=== PATIENT | female | born 1930 | race Caucasian/White ===

== ENCOUNTER 2016-11-10 22:03 | Inpatient (IN) ==
--- NOTE | 2016-11-10 22:37 | Emergency Department Note ---
Arrival - Arrival Chief Complaint: Fall Stated Complaint: cut on head ED Nursing Triage Note: Patient states that she began feeling weak and fell while walking at home and hit her forehead. Laceration noted to forehead upon triage with no active bleeding. Patient awake and alert and able to answer questions. Mode of Arrival: Wheelchair Limitations: Altered Mental Status Source: Family Time Seen by Provider: 11/10/16 22:32 - History of Present Illness HPI Narrative: This 86-year-old white female presents after falling while walking at home and injuring her forehead without loss of conscious. This follows a CT of the abdomen earlier today to evaluate her progressive weakness, memory change, and 30 pound weight loss since the first year. The patient currently is alert and oriented 3 but per the family she has had increasing problems with short-term memory loss. She has never been diagnosed with dementia or Alzheimer's in the past. As concerns her fall, the patient denies any other complaints of injury and has had no nausea, vomiting, slurring of speech, or focal deficit. She is stable medically at this time. Onset (ago): hour(s) (Patient presents 2 hours post incident) Date of Last Menstrual Period: menopause Allergies/Adverse Reactions: Allergies Allergy/AdvReac Type Severity Reaction Status Date / Time codeine Allergy ITCHING Verified 11/10/16 22:20 Home Medications: Home Medications Medication Instructions Recorded Confirmed Type Unable To Obtain [Unable to Obtain] 11/10/16 11/10/16 History Review of System - Review of System 12 point system: reviewed and no additional remarkable complaints except as stated - Review of System Constitutional: Present: as per HPI Gastrointestinal: Present: as per HPI Neurological: Present: as per HPI Medical,Surgical,& Family Hx - Medical History Cardio: History of: Hypertension Endocrine: History of: Dyslipidemia - Social History Smoking Status: Never smoker Frequency of Alcohol Use: None Type of Drug Use: None Exam Physical Examination: GENERAL: Well developed, well nourished elderly white female in no acute distress. HEENT: Normocephalic. When it is laceration left forehead. Moist mucous membranes. EOMI. PERRLA. ENT NML NECK: Supple. No adenopathy. CARDIAC: Regular. No murmurs. Heart rate 86 CHEST: Clear to auscultation. No respiratory distress. ABDOMEN: Soft. Nontender. Active bowel sounds. EXTREMITIES: No trauma. Normal ROM. No pedal edema. SKIN: No diaphoresis. No rash. Small forehead laceration as above. NEURO: Alert. Oriented 3. Motor, sensory, vibratory intact. No focal deficits. Vital Signs: Vital Signs Temperature 99.2 F 11/11/16 00:10 Pulse Rate 86 11/11/16 00:10 Respiratory Rate 19 11/11/16 00:10 Blood Pressure 144/80 11/11/16 00:10 O2 Sat by Pulse Oximetry 92 L 11/11/16 00:10 Course - Reevaluation(s) Reevaluation #1: Discussed with caregiver the fact that her pulmonary status requires hospitalization. - Consultations Consultation #1: Discussed with hospitalist service will admit for further evaluation treatment. Procedures - Laceration Laceration 1 Site: face Size (cm): 2 Description: linear Depth: simple, single layer Local Anesthetic: lidocaine 1%, with epi Amount of Anesthesia Used (mL): 10 Pre-repair: wound explored Skin layer closed with: nylon Size: 4-0 Number of sutures: 8 Technique: simple, interrupted Results - Labs CBC & BMP: 11/10/16 23:36 11/10/16 23:36 Labs: I reviewed the lab and noted the bump in white blood cell count as well as bump in troponin peer - Impressions EKG: Sinus rhythm at 91 with prolonged OR interval normal QRS duration. 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 Nonspecific ST changes. No acute injury pattern noted. - Diagnostic Findings Procedure: Chest x-ray: image reviewed by me, report reviewed by me (Loss of volume on the right with probable perihilar mass versus pneumonia as well as possible right upper lobe peripheral lesion as compared to previous x-rays), CT Abdomen and Pelvis: image reviewed by me, report reviewed by me (From earlier today revealed wall thickening across esophageal gastric junction, cholelithiasis, peripheral atherosclerosis, and cardiomegaly), CT: image reviewed by me, report reviewed by me (Head: No acute injury with microvascular ischemia and cerebral atrophy noted.) Disposition Clinical Impression: Abnormal chest x-ray, Weight loss, Abnormal cardiac enzyme, Intermittent AMS Case discussed with: other (Patient's friend) Disposition: Still a Patient Condition: Guarded Time of Disposition: 00:29
[2016-11-10] MEDS ORDERED: cefTRIAXone 1,000 MG in SODIUM CHLORIDE 0.9% 100 ML IV STA (23:10)
[2016-11-11 00:02] LABS: Basophils % 0.2 % (0.0-0.8); Eosinophils # 0.1 10*3/uL (0.0-0.87); Eosinophils % 0.9 % (0.00-10.9); Hematocrit 45.9 VOL% (35.7-47.0); Hemoglobin 15.6 GM/DL (12.0-16.0); Immature Granulocytes % 0.4 %; Immature Granulocytes Absolute 0.05 #; Lymphocytes # 0.4 10*3/uL (1.4-4.0); Lymphocytes % 2.9 % (21.3-54.2); Mean Corpuscular Hemoglobin 30 PG (27-34); Mean Corpuscular Volume 88.3 FL (87-102); Mean Platelet Volume 11.5 FL (9.6-12.0); Monocytes # 0.5 10*3/uL (0.11-0.8); Monocytes % 3.5 % (1.7-12.7); Neutrophils # 11.7 10*3/uL (1.4-7.4); Neutrophils % 92.1 % (38.7-73.9); Platelet Count 248 T/CUMM (130-400); Red Cell Distribution Width 14.9 % (9.3-17.3); White Blood Count 12.7 T/CUMM (4-12)
[2016-11-11 00:06] LABS: Alanine Aminotransferase 10 U/L (13-56); Albumin 3.2 G/DL (3.4-5.0); Alkaline Phosphatase 87 U/L (45-117); Aspartate Amino Transferase 14 U/L (0-37); Blood Urea Nitrogen 16 MG/DL (7-18); Calcium 9.1 MG/DL (8.5-10.1); Glucose 121 MG/DL (74-106); Osmolality,Calculated 276.7 MOS/KG (273-304); Potassium 3.6 MMOL/L (3.5-5.1); Sodium 138 MMOL/L (136-145); Total Protein 7.7 G/DL (6.4-8.3)
[2016-11-11 00:14] LABS: PT Patient Result 10.5 SECS; Partial Thromboplastin Time 28.1 SECS (0-40)
[2016-11-11 00:17] LABS: Apearance,Urine Slightly Hazy (Clear); Bacteria,Urine Occasional /HPF (Few); Bilirubin,Urine Negative (Negative); Blood, Urine Negative (Negative); Glucose,Urine (UA) Negative (Negative); Ketones,Urine Negative (Negative); Nitrite,Urine Negative (Negative); Protein,Urine Negative; RBC,Urine 4 /HPF (0-4); Squamous Epithelial Cell,Urine Occasional /HPF (0-10); Urine Color Yellow (Yellow); Urine Specific Gravity 1.016 (1.001-1.035); Urine Urobilinogen < 2.0 EU/DL (0.2-1.0); WBC,Urine 2 /HPF (0-6)
--- NOTE | 2016-11-11 00:27 | Order Completion Report ---
See report scanned to EMR
[2016-11-11 00:31] LABS: Barbiturates Screen,Urine Negative (Negative); Benzodiazepines Screen,Urine Negative (Negative); Cannabinoid Screen,Urine Negative (Negative); Opiate Screen,Urine Negative (Negative); Phencyclidine Screen,Urine Negative (Negative)
[2016-11-11] MEDS ORDERED: SODIUM CHLORIDE 0.9% 100 ML IV ONE (02:07)
[2016-11-11] MEDS ORDERED: ALBUTEROL/IPRATROPIUM 3 ML NEB RESP TX PRN (02:13)
[2016-11-11] MEDS ORDERED: ACETAMINOPHEN 325 MG TABLET PO PRN (02:13)
[2016-11-11] MEDS ORDERED: cefTRIAXone 1,000 MG VIAL ONE (02:13)
[2016-11-11] MEDS ORDERED: ONDANSETRON 4 MG/2 ML VIAL IV PRN (02:13)
--- NOTE | 2016-11-11 02:28 | Hospitalist History & Physical ---
Assessment and Plan (1) Pneumonia Status: Acute Current Visit: Yes (2) Gastroesophageal wall thickening Status: Acute Current Visit: Yes (3) Weight loss Status: Acute Current Visit: Yes (4) History of abdominal pain Status: Acute Current Visit: Yes (5) Status post fall Status: Acute Current Visit: Yes (6) Laceration of head Status: Acute Current Visit: Yes (7) Mild bump in troponins Status: Acute Assessment and plan: Our plan for this patient will be admitting her to a monitored bed on her service. I am going to consult Dr. Yun. I am concerned about this changes on her chest x-ray that could be a mass in her hilar area or it could just be pneumonia. I would appreciate his input on this area. For the findings found on CT scan with thickening across the esophageal gastric junction I am going to consult GI for possible endoscopy. When asked that her home meds be confirmed and would continue those once confirmed. DVT and GI prophylaxis will be started while in the hospital Current Visit: Yes History of Present Illness Chief complaint: Status post fall History of present illness: Ms. Ricks is a 86 year old female with past medical history of hypertension and dyslipidemia who was in her normal state of health until today. Patient is a patient of Dr. Yun's. Apparently the nurse practitioner ordered a CT scan of the patient. This was for abdominal pain and weight loss. On the CT scan that showed a questionable wall thickening across the esophageal gastric junction correlate with endoscopy. A neighbor had taken her to the hospital to get the CT scan. He took her back home. Patient lives by herself but patient seems to have dementia to me. And the neighbor confirms this. She has never been diagnosed with dementia. But it has been noted that she has had more increased problems with her short-term memory. Her son called a neighbor and said would you please check on his mother she had following she was bleeding. He brought the patient up to the hospital for further evaluation. Patient had a CT scan of her head that showed no acute intracranial abnormality. But in the workup performed by the ER physician it was noted that she did have some changes on a chest x-ray. I was consulted for admission and evaluation. Home Medications Medication Instructions Recorded Confirmed Type Unable To Obtain [Unable to Obtain] 11/10/16 11/10/16 History Allergies Allergy/AdvReac Type Severity Reaction Status Date / Time codeine Allergy ITCHING Verified 11/10/16 22:20 Medical,Surgical,& Family Hx - Medical History Cardio: History of: Hypertension Endocrine: History of: Dyslipidemia - Surgical History Abdominal Surgeries: Surgical HX of: Appendectomy - Family History Family History: noncontributory (Patient cannot tell me) - Social History Smoking Status: Never smoker Frequency of Alcohol Use: None Type of Drug Use: None ROS unobtainable: due to mental status Exam - Constitutional Vitals: Period Temp Pulse Resp BP Sys/[place] Pulse Ox Last 24 Hr 99.2 F-99.2 F 86-86 19-19 144-144/80-80 87-92 General appearance: normal weight - Head Head exam: Present: normal inspection, laceration - Eye Eye exam: Present: EOMI Pupils: Present: N[place] - Neck Neck exam: Present: normal inspection - Respiratory Respiratory exam: Present: clear to auscultation bilaterally - Cardiovascular Cardiovascular exam: Present: regular rate and rhythm - GI/Abdominal GI/Abdominal exam: Present: normal bowel sounds - Extremities Exam Extremities exam: Present: normal inspection - Back Exam Back exam: Present: normal inspection - Neurological Exam Neurological exam: Present: alert - Psychiatric Psychiatric exam: Present: flat affect - Skin Skin exam: Present: normal color Results - Labs CBC & BMP: 11/10/16 23:36 11/10/16 23:36
[2016-11-11 03:31] LABS: Band Neutrophils 3 % (0-10); Lymphocytes 3 % (20-55); Platelet Estimate Normal; Segmented Neutrophils 90 % (50-85); Total Cells Counted 100
[2016-11-11] MEDS: AZITHROMYCIN INJ 500 MG in SODIUM CHLORIDE 0.9% 250 ML IV SCH (03:55)
--- NOTE | 2016-11-11 06:42 | CT Report ---
History: Mental status changes. Altered mental status. Confusion or disorientation Date: 11/10/2016 Study: CT head without contrast Comparison exam: No previous head CT The study was also reviewed by [facility]. Transaxial CT sections were obtained through the brain without contrast. The ventricles are midline in position without evidence of hydrocephalus. There is no mass or area of parenchymal hemorrhage. There is no gross CT evidence of acute cortical stroke. There is mild diffuse cerebral atrophy. There is some ill-defined low density in the periventricular white matter without mass effect compatible with changes of small vessel disease. 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 There is asymmetric relative atrophy of the right temporal and occipital lobes as compared to the left. There is no extra-axial hematoma. The sinuses are generally clear. There is no obvious skull fracture. There is some mild soft tissue swelling and localized soft tissue emphysema of the left frontal scalp compatible with scalp laceration Impression: No acute intracranial process. Chronic ischemic changes Left frontal scalp laceration This CT exam was performed using one or more the following dose reduction techniques: Automated exposure control, adjustment of the MA and/or KV according to patient size, or use of iterative reconstruction technique. PROCEDURE INTERPRETED AT [facility] DEPARTMENT OF RADIOLOGY Final Report Signed by: Dr. Sonja Feliciano
[2016-11-11 07:41] LABS: Basophils % 0.2 % (0.0-0.8); Eosinophils # 0.4 10*3/uL (0.0-0.87); Eosinophils % 2.3 % (0.00-10.9); Hematocrit 40.1 VOL% (35.7-47.0); Immature Granulocytes % 0.4 %; Immature Granulocytes Absolute 0.07 #; Lymphocytes # 0.4 10*3/uL (1.4-4.0); Lymphocytes % 2.7 % (21.3-54.2); Mean Corpuscular HGB Conc 33.7 GM/DL (32-36); Mean Corpuscular Hemoglobin 30 PG (27-34); Mean Corpuscular Volume 88.1 FL (87-102); Mean Platelet Volume 11.6 FL (9.6-12.0); Monocytes # 0.7 10*3/uL (0.11-0.8); Monocytes % 4.1 % (1.7-12.7); Neutrophils # 14.8 10*3/uL (1.4-7.4); Neutrophils % 90.3 % (38.7-73.9); Platelet Count 218 T/CUMM (130-400); Red Blood Count 4.55 MC/CUMM (3.8-5.5); Red Cell Distribution Width 15.3 % (9.3-17.3); White Blood Count 16.4 T/CUMM (4-12)
--- NOTE | 2016-11-11 07:53 | XRay Report ---
History: Shortness of breath Date: 11/10/2016 Study: Chest x-ray AP portable Comparison exam: January 24, 2009 There is borderline cardiomegaly. There is some asymmetric soft tissue fullness in the right infrahilar region. Underlying lymphadenopathy or superimposed pulmonary mass cannot be excluded. Recommend obtaining CT chest for further evaluation. There is moderate aortic arch calcification. The pulmonary vasculature is not engorged. There is no gross pleural effusion. There are some probable scattered emphysematous changes. There is mild thoracolumbar scoliosis, osteopenia, and spondylosis. Impression: Area of asymmetric increased density right infrahilar region. Recommend obtaining CT chest to help exclude malignancy. Focal pneumonia would also be a diagnostic consideration. PROCEDURE INTERPRETED AT [facility] DEPARTMENT OF RADIOLOGY Final Report Signed by: Dr. Sonja Feliciano
[2016-11-11 07:58] LABS: Hemoglobin 13.5 GM/DL (12.0-16.0)
[2016-11-11 08:06] LABS: Band Neutrophils 4 % (0-10); Eosinophils 5 % (0-10); Lymphocytes 2 % (20-55); Segmented Neutrophils 87 % (50-85); Total Cells Counted 100
[2016-11-11 08:07] LABS: Hypochromasia 1+; Microcytosis 1+; Platelet Estimate Normal
[2016-11-11 08:17] LABS: Alanine Aminotransferase < 9 U/L (13-56); Albumin 2.4 G/DL (3.4-5.0); Alkaline Phosphatase 68 U/L (45-117); Aspartate Amino Transferase 10 U/L (0-37); Blood Urea Nitrogen 16 MG/DL (7-18); Calcium 8.3 MG/DL (8.5-10.1); Glucose 96 MG/DL (74-106); Potassium 3.6 MMOL/L (3.5-5.1); Sodium 136 MMOL/L (136-145); Total Protein 6.1 G/DL (6.4-8.3)
--- NOTE | 2016-11-11 12:09 | Pulmonology Consult Note ---
History of Present Illness Chief complaint: Pneumonia. Weight loss. Abnormal chest x-ray. History of present illness: Shawn Mcmillan, [facility], acting as scribe for Dr. Chele Nina Ms. Ricks is an 86-year-old white female who we have been asked to see in pulmonary consultation for evaluation and treatment. The request for consultation was made by Dr. Calabrese. The patient was in her usual state of health until yesterday when she fell at home while walking. She states that she had no forewarning that she was going to fall. She did not trip over anything. She did not lose consciousness. She was brought to the emergency room for evaluation and upon workup was found to have a possible perihilar mass versus pneumonia on chest x-ray. Earlier in the day she had also had a CT of the abdomen which had been ordered by Mallory Givens, nurse practitioner, for weight loss, abdominal pain, and weakness. This showed questionable wall thickening across the esophageal gastric junction , cholelithiasis, cardiomegaly, peripheral atherosclerosis, and atrophic right kidney. Given the x-ray changes, advanced age, multiple comorbidities, and her symptoms, it was felt in her best interest to hospitalize her for evaluation and care. The patient denies any increased shortness of breath or dyspnea on exertion. There is no reported cardiac angina or palpitations. No change in bowel or bladder habits. No bleeding from any site. No TIA symptoms or syncope. She did hit her head when she fell and has a mild forehead laceration. All other systems were reviewed and were negative. Allergies: Codeine which causes nausea Home medications: See list Immunizations: The patient takes yearly flu shots. Pneumovax was given in 2011. Past history: Bilateral hip replacements. Chronic back pain which is been followed by Dr. Vega. Recurrent allergic and infectious sinusitis. Asthma. Chronic renal failure. Degenerative joint disease. Glucose intolerance. History of stable pulmonary nodule. Appendectomy. Hypertension. Dyslipidemia. Family history: Her mother had arthritis and heart disease with a heart attack. Social history: The patient is retired from [employer]. She has 12th grade education. She denies alcohol and tobacco. At an 10/02/[address] Nina she told him she had a chill while on dog named Eugenio. She told him that the dog would say "mom". Past procedures: Renal ultrasound done 12/16/2011 showed small echogenic right kidney as compared to the left. Abdominal ultrasound done 12/16/2011 showed cholelithiasis. X-ray of the right hip done 06/03/2014 showed status post right total hip replacement. Osteopenia with no acute fracture or dislocation. Arterial calcifications were noted. X-ray of the right knee done 06/03/2014 showed moderate degenerative joint disease with osteopenia. No acute fracture dislocation. Arterial calcifications were noted. CT of the head without contrast done 11/10/2016 showed no acute intracranial process. Chronic ischemic changes. Left frontal scalp laceration. Chest x-ray done 11/10/2016 and compared to x-ray done 01/24/2009 showed an area of asymmetric increased density in the right infrahilar region. Laboratory: White count is 16,400 with 90.3% segs, 2.7% lymphs, and 4.1% monos; H&H 13.5/40.1 with normal indices and top normal red blood cell distribution with; platelet count 219,000; INR 1.0; creatinine improved to 1.30, BUN 16, sodium 136, potassium 3.6, liver function tests within normal limits; calcium is low at 8.3 reflected in a low albumin of 2.4, total protein 6.1; troponins were initially 0.220 and her now 0.164; urinalysis shows no evidence of infection; urine drug screen is negative Home Medications Medication Instructions Recorded Confirmed Type Atenolol 50 mg PO BID 11/11/16 11/11/16 History Montelukast Tab [Singulair Tab] 10 mg PO DAILY 11/11/16 11/11/16 History NIFEdipine [Nifedipine ER] 60 mg PO DAILY 11/11/16 11/11/16 History Nitrofurantoin Macrocrystal 100 mg PO Q12H 11/11/16 11/11/16 History [Nitrofurantoin] Potassium Chloride 16 meq PO DAILY 11/11/16 11/11/16 History cephALEXin [Cephalexin] 500 mg PO QID 11/11/16 11/11/16 History Allergies Allergy/AdvReac Type Severity Reaction Status Date / Time codeine Allergy ITCHING Verified 11/11/16 07:39 Exam (Pulmonay) H&P - Constitutional Vitals: Period Temp Pulse Resp BP Sys/[place] Pulse Ox Last 24 Hr 98.5 F-100.4 F 79-97 16-20 117-144/60-80 87-98 Exam: Psych: Oriented at least to person; a pleasant and cooperative patient; certainly has the stigmata of dementia HEENT: Pupils, irises, sclera, conjunctiva, and eyelids are normal. The face is symmetrical without rash or masses. Lips, tongue, buccal mucosa, soft and hard palates, and pharynx are WNL; laceration to the left frontal scalp noted. Neck: Symmetrical. Thyroid was not palpated. Lymphatics: No submandibular, cervical, or supraclavicular adenopathy Chest: Symmetrical and kyphotic without wheeze or congestion Breasts: Deferred CV: Regular with a slightly lateral PMI and a grade 1/6 systolic ejection murmur at the left sternal border that does not radiate Arterial: Carotids were slightly decreased but overall were normal and without bruit. Upper extremity pulses were palpable. Posterior tibial pulses were faintly palpable. Venous: Venous exam of the neck and upper extremities appear normal. There is mild chronic venous stasis changes over the lower extremities. No phlebitis was seen. Abd: No appreciable organomegaly, masses, tenderness, or bruit; Bowel sounds are positive 4; The aorta was not palpated /Rectal: Deferred Extremities: No clubbing, cyanosis, edema, or obvious DVT Skin: No cancerous or infectious lesions of the exposed, examined skin; the perineal area was not examined; see HEENT M/S: Age appropriate loss of the normal curvature of the cervical, thoracic, and lumbar spine Neurological: Cranial nerves are intact with decreased hearing acuity bilaterally, Long tract motor function is intact; Sensory exam was not done; gait was not tested. The remainder of the exam was noncontributory. Impression: #1: Abnormal chest x-ray with asymmetrical finding in the right perihilar area most likely secondary to infectious process, but consider other causes #2: Fall with laceration to the forehead #3: Weight loss #4: Questionable wall thickening across the esophageal gastric junction seen on CT abdomen 11/10/2016 #5: Asthma #6: Hypertension #7: Degenerative joint disease #8: Hyperlipidemia #9: Azotemia #10: See past history Plan: #1: Given the changes on her chest x-ray which were not present at [facility], we will proceed with CT of the chest without contrast #2: We agree with your protocol antibiotics #3: Agree with inhalation therapy #4: See orders We appreciate this consult and will follow along with you. Medical,Surgical,& Family Hx - Medical History Cardio: History of: Hypertension Endocrine: History of: Dyslipidemia - Surgical History Abdominal Surgeries: Surgical HX of: Abdominal Surgery, Appendectomy - Social History Smoking Status: Never smoker Frequency of Alcohol Use: None Type of Drug Use: None Results - Labs CBC & BMP: 11/11/16 07:07 11/11/16 07:07
[2016-11-11] MEDS: PANTOPRAZOLE 40 MG TABLET PO SCH (12:12)
[2016-11-11] MEDS: ENOXAPARIN 40 MG/0.4 ML SYRINGE SUBCUT SCH (12:13)
--- NOTE | 2016-11-11 13:19 | CT Report ---
Exam: CT chest without intravenous contrast Exam date: 11/11/2016 10:06 AM Clinical History: 86 years Female abnormal chest x-ray hilar prominence Technique: Axial computed tomography images of the chest without intravenous contrast. The CT exam was performed using one or more of the following dose reduction techniques: Automated exposure control, adjustment of the mA and/or kV according to patient size, or use of iterative reconstruction technique. Comparison: No relevant prior studies available Findings: Lungs: Consolidation with volume loss involving the right middle lobe. Subpleural interstitial fibrotic changes, lower lobe predominance. Pleural thickening involving the left oblique fissure Pleural spaces: No pneumothorax. No significant effusion Heart: Left ventricular enlargement. Fusiform aneurysmal dilatation of the ascending aorta measuring up to 4.0 cm in cross section. Dense atheromatous plaquing along the arch and origins of great vessels Mediastinum: Intact. Normal trachea Bones/joints: Intact. No acute fracture. No dislocation. Spondylitic changes throughout the spinal axis Soft tissues: Unremarkable Vasculature: Intact Lymph nodes: No enlarged lymph nodes Visualized abdomen: Left nephrolithiasis Impression: 1. Consolidation and volume loss involving the right middle lobe. Findings likely inflammatory/infectious in etiology. Short-term follow-up is suggested 2. Interstitial fibrosis 3. Fusiform aneurysmal dilatation of the ascending aorta 4. Atherosclerosis 5. Left nephrolithiasis PROCEDURE INTERPRETED AT [facility] DEPARTMENT OF RADIOLOGY Final Report Signed by: Ricky Winter MD
--- NOTE | 2016-11-11 14:44 | Hospitalist Progress Note ---
Assessment and Plan (1) Pneumonia Status: Acute Assessment and plan: Azithromycin and Rocephin IV. Swapna lacy. Dr. Nina consulted. Chest CT suggests infectious in origin. Current Visit: Yes (2) Aneurysm of ascending aorta Status: Acute Assessment and plan: Measuring [address] Valle for an opinion. Advance age making her a poor Current Visit: Yes (3) First degree AV block Status: Acute Assessment and plan: First-degree AV block Current Visit: Yes (4) Laceration of head Status: Acute Assessment and plan: stitches look good Current Visit: Yes Hospitalist: Subjective Interval history: Discussed this status with patient and she would like to be a DNR. Asked patient if she still had abdominal pain but she denied any abdominal pain at this time. No other family was in the room. She reports coughing and some shortness of breath. Pneumonia versus masses in the differential. Dr. Yun has seen her and recommends a chest CT. Exam - Constitutional Vitals: Period Temp Pulse Resp BP Sys/[place] Pulse Ox Last 24 Hr 98.5 F-100.4 F 66-97 16-20 117-144/60-80 87-98 Exam: Heart Rate-[RRR] Lungs-[CTAB but diminished] GI-[+bs soft, NT] Ext-[no edema] Neuro [Motor 5/5], [alert and oriented times 3] psych [normal mood and affect] General [no acute distress] Results - Labs CBC & BMP: 11/11/16 07:07 11/11/16 07:07 Lab Results: I have reviewed the past 24 hour labs - EKG EKG shows: sinus rhythm (prolonged pr interval) - Diagnostic Findings Procedure: Chest x-ray: report reviewed by me (Asymmetrical density in the right infrahilar area.), CT - chest: report reviewed by me (Consolidation and volume loss in the right middle lobe with interstitial fibrosis aneurysm dilation of the ascending aorta measuring 4 cm left nephrolithiasis.), CT: report reviewed by me (No acute intracranial process, chronicity ischemic changes, left frontal scalp laceration.)
--- NOTE | 2016-11-11 19:07 | Gastrointestinal Consult Note ---
Assessment and Plan (1) Abnormal weight loss Status: Acute Assessment and plan: This patient has a fairly significant weight loss over the last 7 years which has been slowly progressive and is likely multifactorial. May be some depression not to mention dementia feeding into this weight loss however the son Emmanuel Ricks notes inability to tolerate the same volume of food the patient had previously and a CT scan shows thickening of the distal esophageal junction and the proximal stomach suspicious for either cancer, esophagitis/gastritis, or underdistention during the CT film process. In my opinion is reasonable to perform upper endoscopy briefly in order to distinguish between these etiologies and check for Helicobacter pylori. Significant gastritis is noted we can certainly treat this and perhaps restore some of her appetite/help her regain her weight. Risks and benefits of the procedure were discussed with the patient and her son which include but are not limited to: Bleeding, infection, perforation, cardiac and pulmonary compromise. The patient's son would like everything done that needs to be done while she is here in the hospital, understandably. Current Visit: Yes (2) Abnormal abdominal CT scan Status: Acute Assessment and plan: As mentioned above previous CT scanning demonstrates some thickening in the distal esophagus/proximal stomach suspicious for gastritis versus malignancy versus underdistention. Current Visit: Yes (3) Early satiety Status: Acute Assessment and plan: This patient may simply have neglect however given the early satiety symptoms there may be gastroparesis present as well. She does have some diabetes and so this is certainly conceivable. We should be able to tell this fairly quickly with upper endoscopy tomorrow. Current Visit: Yes History of Present Illness Chief complaint: Weight loss of 54 pounds over the last 7 years, abnormal CT scan History of present illness: Ms. Ricks is a 86 year old female who has a history of abnormal weight loss which has been slow and progressive over a period of years. I note that the patient used to weigh 152 pounds back in September 2007 by May 2011 is dropped 140 and then by November 2014 dropped to 124 and currently as of 10/26/16 this is dropped down to 98 pounds. This being said, the patient does have what appears to be interstitial fibrosis, chronic renal insufficiency, hypertension hyperlipidemia history of asthma, allergic sinusitis type 2 diabetes DJD, carotid bruit, and recent CT scan done on 11/10/16 which seems to show gallstones , there was slight thickening of the distal esophagus and proximal gastric wall. The patient does not recall that she has lost any weight. I asked her specifically about difficulty swallowing or pain on swallowing either which she is having she does not complain of any abdominal pain per se she is not complaining of any diarrhea or constipation issues. Surprisingly she has not seen any development chemist up to this point and looking through [facility] records and hospital records. In talking with her son Emmanuel Ricks it seems like his impression was that she is not able to eat as much as she used to and has gradually lost this weight over a number of years as well. He points out that his mother is extremely stoic and the fact that she is here under the doctor's care came at the chappell of some "arm twisting". He would like to see the appropriate workup done while she is here in the hospital. We did discuss that her slowly tapering weight may also be a result of her dementia or chronic interstitial lung disease as well. Home Medications Medication Instructions Recorded Confirmed Type Atenolol 50 mg PO BID 11/11/16 11/11/16 History Montelukast Tab [Singulair Tab] 10 mg PO DAILY 11/11/16 11/11/16 History NIFEdipine [Nifedipine ER] 60 mg PO DAILY 11/11/16 11/11/16 History Nitrofurantoin Macrocrystal 100 mg PO Q12H 11/11/16 11/11/16 History [Nitrofurantoin] Potassium Chloride 16 meq PO DAILY 11/11/16 11/11/16 History cephALEXin [Cephalexin] 500 mg PO QID 11/11/16 11/11/16 History Allergies Allergy/AdvReac Type Severity Reaction Status Date / Time codeine Allergy ITCHING Verified 11/11/16 07:39 Medical,Surgical,& Family Hx - Medical History Cardio: History of: Hypertension Endocrine: History of: Dyslipidemia - Surgical History Abdominal Surgeries: Surgical HX of: Abdominal Surgery, Appendectomy - Social History Smoking Status: Never smoker Frequency of Alcohol Use: None Type of Drug Use: None ROS unobtainable: due to dementia Exam - Constitutional Vitals: Period Temp Pulse Resp BP Sys/Middleton Pulse Ox Last 24 Hr 98.5 F-100.4 F 66-97 16-20 110-144/60-80 87-98 Exam: Constitutional: Well-developed, well-nourished, alert, and in no acute distress Head and face: Head: Normocephalic, however the patient has a contusion on her right forehead Eyes: Conjunctiva without injection, no gross scleral icterus, pupils equal and round bilaterally, bilateral ocular implants are noted. Ears: Intact to conversation in both ears Nose: External appearance is normal, nares patent Mouth: Oral mucous membranes moist without erythema dentition noted to be without erosion Neck: Normal appearance, no masses or tenderness, trachea midline Thyroid: Gland midline and appropriate size for age Respiratory: Normal respiratory effort, clear to auscultation with end expiratory wheeze, but no rhonchi or rales Cardiovascular: Regular rate and rhythm, normal S1, S2, the exam is without rubs, murmurs or gallops. Gastrointestinal: Nontender to palpation, normal active bowel sounds, tone normal without rigidity or guarding, no masses present, no hepatomegaly, no spleen tip felt. No rectal exam obtained. Lymphatic: Neck without adenopathy, axilla without lymphadenopathy present Musculoskeletal: Right and left lower extremities without evidence of edema Skin and subcutaneous tissue: No rashes or ulcerations noted, normal skin turgor, digits and nails without clubbing/cyanosis/deformities. Neurologic: The patient is grossly oriented to person place. Mild to moderate dementia noted. Cranial nerves show tongue movements are normal with normal tongue extrusion midline, light touch sensation is intact. Psychiatric: No hallucinations or delusions are present, does not appear depressed Results - Labs CBC & BMP: 11/11/16 07:07 11/11/16 07:07
[2016-11-12] MEDS: AZITHROMYCIN INJ 500 MG in SODIUM CHLORIDE 0.9% 250 ML IV SCH (03:31)
--- NOTE | 2016-11-12 08:18 | Operative Note ---
Date of procedure: 11/12/16 Pre-op diagnosis: Abnormal weight loss, early satiety Post-op diagnosis: other (2 cm hiatal hernia, mild nonerosive linear gastritis, biopsies taken for celiac sprue given the patient's abnormal weight loss. No severe esophagitis or gastritis to correspond with findings of CT scan.) Procedure: PROCEDURE: Esophagogastroduodenoscopy (EGD) with cold biopsy for pathology REFERRING PHYSICIAN: Mariel Vivar MD INDICATIONS: Abnormal CT scan showing thickening in the proximal stomach and distal esophagus, abnormal weight loss, early satiety. The prior H&P was reviewed and interrim changes are as noted: No change from GI consultation yesterday ENDOSCOPIST: Ryan Garsia MD ENDOSCOPE: Olympus Video 100 System upper endoscope ASA CLASS: 3 EXAM: CV: regular rate and rhythm respiratory: Clear without wheezes abdominal: active bowel sounds MEDICATION: Per nursing anesthesia protocol, see their notes PROCEDURE: After discussion of the potential risks and benefits of upper endoscopy, the informed consent was obtained. The patient was then placed in the left lateral decubitus position where sedation was achieved as noted above. Esophageal intubation was performed without difficulty, and the endoscope was advanced through the esophagus, stomach and duodenum. A slow withdrawal was then performed with retroflexion in the stomach for careful inspection of the incisura angularis, fundus and cardia. The scope was then returned to a neutral position and withdrawn through the esophagus. The patient tolerated the procedure well and without complication. BIOPSIES: Gastric antrum/body and duodenum biopsies for sprue PHOTOGRAPHS: Obtained FINDINGS: Hypopharynx and Larynx: Normal Esohagoscopy Upper and middle thirds: Normal Lower third normal, no gross evidence of esophagitis or cancer Esophogastric junctions: No stricturing, Gaona's, cancer or esophagitis appreciated. Gastroscopy: Cardia/Fundus: 2 cm hiatal hernia, scant amount of yellow fluid in the stomach, again no thickening suspicious for cancer Body: Mild linear gastritis, nonerosive, biopsied Antrum and pylorus mild nonerosive linear gastritis, biopsied Duodenoscopy: Bulb normal Second and third portions: Normal IMPRESSION: 2 cm hiatal hernia, mild nonerosive linear gastritis, biopsies taken for celiac sprue given the patient's abnormal weight loss. No severe esophagitis or gastritis to correspond with findings of CT scan. RECOMMENDATIONS: Follow up for biopsy results in 1-2 weeks by phone [phone] Continue anti-gastroesophageal reflux measures (avoid carbonated and acidic beverages, avoid eating within 2 hours of bedtime, avoid tight fitting clothing , and elevate the front bed posts 6 inches prior to sleeping. I suspect a fair amount of her weight loss actually due to her dementia and underlying lung disorder curbing her appetite. Protonix 40 mg daily may be helpful, treatment of Helicobacter pylori may also be helpful as well. Ryan Garsia MD COPY TO: Mariel Vivar MD Anesthesia: MAC Surgeon / Physician: Ryan Garsia Estimated blood loss: minimal Specimens: other (Gastric antrum/body) Condition: stable Disposition: post procedure unit (G.I. Suite) Results - Labs CBC & BMP: 11/11/16 07:07 11/11/16 07:07 Discharge Plan - Discharge Medications No Action Atenolol 50 mg PO BID cephALEXin [Cephalexin] 500 mg PO QID Nitrofurantoin Macrocrystal [Nitrofurantoin] 100 mg PO Q12H Montelukast Tab [Singulair Tab] 10 mg PO DAILY NIFEdipine [Nifedipine ER] 60 mg PO DAILY Potassium Chloride 16 meq PO DAILY - Follow Up or Referral - Forms/Instructions
--- NOTE | 2016-11-12 08:21 | Anesthesia Post-Op ---
Anesthesia Post OP - Post Ansesthetic Evaluation Patient seen in post op: Yes Resp: within normal limits CV: within normal limits Mental: within normal limits Temp: within normal limits Snlt-Qs-Owprdgamj: within normal limits Nausea and Vomiting: within normal limits Pain: within normal limits
--- NOTE | 2016-11-12 08:24 | Gastrointestinal Progress Note ---
Assessment and Plan (1) Abnormal weight loss Status: Acute Assessment and plan: This patient has a fairly significant weight loss over the last 7 years which has been slowly progressive and is likely multifactorial. May be some depression not to mention dementia feeding into this weight loss however the son Emmanuel Ricks notes inability to tolerate the same volume of food the patient had previously and a CT scan shows thickening of the distal esophageal junction and the proximal stomach suspicious for either cancer, esophagitis/gastritis, or underdistention during the CT film process. In my opinion is reasonable to perform upper endoscopy briefly in order to distinguish between these etiologies and check for Helicobacter pylori. Significant gastritis is noted we can certainly treat this and perhaps restore some of her appetite/help her regain her weight. Risks and benefits of the procedure were discussed with the patient and her son which include but are not limited to: Bleeding, infection, perforation, cardiac and pulmonary compromise. The patient's son would like everything done that needs to be done while she is here in the hospital, understandably. 11/11/16--findings upper endoscopy include the followin cm hiatal hernia, mild nonerosive linear gastritis, biopsies taken for celiac sprue given the patient's abnormal weight loss. No severe esophagitis or gastritis to correspond with findings of CT scan. We will see how she does with a regular diet that is low lactose and mechanically soft. Current Visit: Yes (2) Abnormal abdominal CT scan Status: Acute Assessment and plan: As mentioned above previous CT scanning demonstrates some thickening in the distal esophagus/proximal stomach suspicious for gastritis versus malignancy versus underdistention. 11/12/16--This proved to be underdistention. No cancer or severe gastritis appreciated. Current Visit: Yes (3) Early satiety Status: Acute Assessment and plan: This patient may simply have neglect however given the early satiety symptoms there may be gastroparesis present as well. She does have some diabetes and so this is certainly conceivable. We should be able to tell this fairly quickly with upper endoscopy tomorrow. 11/12/16--There was a scant amount of retained fluid in the stomach but no solid food. If gastroparesis is present it is quite limited. Current Visit: Yes Gastroenterology - PN: Subj Interval history: No new complaints except increased cough from yesterday. The patient has been placed on Zithromax for this. Exam (Progress Note) - Constitutional Vitals: Period Temp Pulse Resp BP Sys/Middleton Pulse Ox Last 24 Hr 98.0 F-99.1 F 66-81 16-18 110-176/62-95 90-96 General appearance: mild distress - Head Head exam: Present: normocephalic - Eye Eye exam: Present: EOMI Pupils: Present: NEVILLE - Respiratory Respiratory exam: Present: clear to auscultation bilaterally, other (Repetitive cough). Absent: rhonchi, stridor, wheezes - Cardiovascular Cardiovascular exam: Present: regular rate and rhythm - GI/Abdominal GI/Abdominal exam: Present: normal bowel sounds, soft. Absent: distended, guarding, tenderness, rebound - Extremities Exam Extremities exam: Absent: edema - Neurological Exam Neurological exam: Present: alert, altered (Demented), other. Absent: motor sensory deficit - Psychiatric Psychiatric exam: Present: normal affect, normal mood - Skin Skin exam: Present: warm Results - Labs CBC & BMP: 11/11/16 07:07 11/11/16 07:07
[2016-11-12] MEDS: ENOXAPARIN 40 MG/0.4 ML SYRINGE SUBCUT SCH (08:47)
[2016-11-12] MEDS: PANTOPRAZOLE 40 MG TABLET PO SCH (08:47)
--- NOTE | 2016-11-12 10:31 | Vascular Surgery Consult Note ---
History of Present Illness Chief complaint: ascending aortic aneurysm History of present illness: Ms. Ricks is a 86 year old female Ms. Ricks is an 86-year-old woman with early dementia who is been admitted with pneumonia and GI bleeding. CT scan of the chest is revealed a mild aneurysm involving the ascending aorta. While it is unlikely that this would be addressed in this woman it would be more appropriately evaluated by Dr. West with cardiothoracic surgery. I will redirect this consultation to him Home Medications Medication Instructions Recorded Confirmed Type Atenolol 50 mg PO BID 11/11/16 11/11/16 History Montelukast Tab [Singulair Tab] 10 mg PO DAILY 11/11/16 11/11/16 History NIFEdipine [Nifedipine ER] 60 mg PO DAILY 11/11/16 11/11/16 History Nitrofurantoin Macrocrystal 100 mg PO Q12H 11/11/16 11/11/16 History [Nitrofurantoin] Potassium Chloride 16 meq PO DAILY 11/11/16 11/11/16 History cephALEXin [Cephalexin] 500 mg PO QID 11/11/16 11/11/16 History Allergies Allergy/AdvReac Type Severity Reaction Status Date / Time codeine Allergy ITCHING Verified 11/11/16 07:39 Medical,Surgical,& Family Hx - Medical History Cardio: History of: Hypertension Neurology: No history of: Seizures Endocrine: History of: Dyslipidemia - Surgical History Abdominal Surgeries: Surgical HX of: Abdominal Surgery, Appendectomy - Social History Smoking Status: Never smoker Frequency of Alcohol Use: None Type of Drug Use: None Exam - Constitutional Vitals: Period Temp Pulse Resp BP Sys/Middleton Pulse Ox Last 24 Hr 98.0 F-99.1 F 66-81 16-18 110-176/62-95 90-98 Results - Labs CBC & BMP: 11/11/16 07:07 11/11/16 07:07
--- NOTE | 2016-11-12 10:44 | Pulmonology Progress Note ---
Pulmonary - PN: Subj Interval history: Shawn Mcmillan, AGPCNP-, acting as scribe for Dr. Chele Nina Ms. Ricks is an 86-year-old white female who we saw in initial pulmonary consultation on 11/11/2016. At that time, our impressions were: #1: Abnormal chest x-ray with asymmetrical finding in the right perihilar area most likely secondary to infectious process, but consider other causes #2: Fall with laceration to the forehead #3: Weight loss #4: Questionable wall thickening across the esophageal gastric junction seen on CT abdomen 11/10/2016 #5: Asthma #6: Hypertension #7: Degenerative joint disease #8: Hyperlipidemia #9: Azotemia #10: See past history 11/12/2016. CT of the chest done 11/11/2016 showed consolidation and volume loss involving the right middle lobe. Upon review of this, this is going to be secondary to right middle lobe infiltrate. The question will be if there is anything in the bronchus. We will watch this for now but the patient may end up requiring fiberoptic bronchoscopy since this area does not drain well. 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 She has been seen in GI consultation by Dr. Garsia. 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 There is no severe esophagitis or gastritis to correspond with the findings on the CT the abdomen done 2016. She has been seen in surgical consultation by Dr. Valle for the aneurysmal dilatation of the ascending aorta. He has consulted Dr. Bowers for evaluation, but does not feel that this will need to be surgically evaluated. Medications have been reviewed. We made no changes. Labs been reviewed. No new labs were drawn today Exam (Progress Note) - Constitutional Vitals: Period Temp Pulse Resp BP Sys/Middleton Pulse Ox Last 24 Hr 98.0 F-99.1 F 66-81 16-18 110-176/62-95 90-98 Exam: Chest is clear Heart no gallop Abdomen is nontender and nondistended; bowel sounds are positive 4 Extremities with nothing to suggest acute deep venous femoral phlebitis Psychiatric oriented at least to person and place; slight stigmata of dementia Neurologic long-term motor function is intact Plan: Continue present treatment. Will repeat chest x-ray on Tuesday. Repeat labs on Tuesday. See orders. Results - Labs CBC & BMP: 11/11/16 07:07 11/11/16 07:07
[2016-11-12] MEDS ORDERED: LIDOCAINE 1% 5 ML VIAL ONE (15:02)
[2016-11-12] MEDS ORDERED: PROPOFOL 200 MG/20 ML VIAL IV ONE (15:02)
--- NOTE | 2016-11-12 16:36 | Hospitalist Progress Note ---
Assessment and Plan (1) Pneumonia Status: Acute Assessment and plan: cont azithromycin but change to cefepime. cont Duo nebs. Dr. Nina following Current Visit: Yes (2) Aneurysm of ascending aorta Status: Acute Assessment and plan: not a good surgical candidate Current Visit: Yes (3) First degree AV block Status: Acute Assessment and plan: First-degree AV block Current Visit: Yes (4) Laceration of head Status: Acute Assessment and plan: stitches look good Current Visit: Yes Hospitalist: Subjective Interval history: Patient is not a surgical candidate for aneurysm repair at her age pertinent my discussion of the Dr. Valle. Patient had an EGD today which showed a hiatal hernia and some gastritis. Patient is beginning to mobilize sputum from her pneumonia. Exam - Constitutional Vitals: Period Temp Pulse Resp BP Sys/Middleton Pulse Ox Last 24 Hr 98.0 F-99.2 F 68-89 16-18 117-176/70-95 90-98 Exam: Heart Rate-[RRR] Lungs-[rhonchi] GI-[+bs soft, NT] Ext-[no edema] Neuro [Motor 5/5], [alert and oriented times 2] psych [normal mood and affect] General [no acute distress] Results - Labs CBC & BMP: 11/11/16 07:07 11/11/16 07:07 Lab Results: I have reviewed the past 24 hour labs Labs: blood cx times 2 negative
[2016-11-12] MEDS: CEFEPIME 2,000 MG in SODIUM CHLORIDE 0.9% 100 ML IV SCH (17:36)
--- NOTE | 2016-11-12 21:24 | Cardiothoracic Consult ---
Assessment and Plan - Time spent with patient Time spent with patient: Greater than 30 minutes (1) Aneurysm of ascending aorta Status: Acute Assessment and plan: 86-year-old female who was found accidentally to have a small ascending aortic aneurysm 4 cm in diameter. The current measurement does not qualify for elective repair. With the patient's age I do not think she will need any surveillance at this point. The patient is completely asymptomatic. If the patient becomes symptomatic or this turned into dissection I will consider surgical intervention. However with the patient's advanced age and multiple comorbidities I would not consider any elective intervention especially currently with a small size of the aneurysm. Current Visit: Yes History of Present Illness - Data of Consult Patient: new to practice Consult date: 11/12/16 - Consult Narrative Reason for consult: Ascending aortic aneurysm History of present illness: Ms. Ricks is a 86 year old female who was found to have a 4 cm ascending aortic aneurysm accidentally discovered on a chest CT. The patient is asymptomatic. She denies any chest or back pain. No dissection noted. CC: Mariel Vivar MD - Home Medications and Allergies Home Medications: Home Medications Medication Instructions Recorded Confirmed Type Atenolol 50 mg PO BID 11/11/16 11/11/16 History Montelukast Tab [Singulair Tab] 10 mg PO DAILY 11/11/16 11/11/16 History NIFEdipine [Nifedipine ER] 60 mg PO DAILY 11/11/16 11/11/16 History Nitrofurantoin Macrocrystal 100 mg PO Q12H 11/11/16 11/11/16 History [Nitrofurantoin] Potassium Chloride 16 meq PO DAILY 11/11/16 11/11/16 History cephALEXin [Cephalexin] 500 mg PO QID 11/11/16 11/11/16 History Allergies/Adverse Reactions: Allergies Allergy/AdvReac Type Severity Reaction Status Date / Time codeine Allergy ITCHING Verified 11/11/16 07:39 12 point system: reviewed and no additional remarkable complaints except as stated (hpi) Medical,Surgical,& Family Hx - Medical History Cardio: History of: Hypertension Neurology: No history of: Seizures Endocrine: History of: Dyslipidemia - Surgical History Abdominal Surgeries: Surgical HX of: Abdominal Surgery, Appendectomy - Social History Smoking Status: Never smoker Frequency of Alcohol Use: None Type of Drug Use: None Physical Examination Vital Signs Temp Pulse Resp BP Pulse Ox 99.2 F 86 19 144/80 87 L 11/10/16 22:21 11/10/16 22:21 11/10/16 22:21 11/10/16 22:21 11/10/16 22:21 General: Present: Appears Well HEENT: Present: PERRL Neck: Present: Supple Neck Cardiac: Present: Reg Rate and Rhythm Lungs: Present: Wheezes Neuro: Present: Cranial Nerve 2-12 Intact Result/EKG - Labs CBC & BMP: 11/11/16 07:07 11/11/16 07:07
[2016-11-13] MEDS: CEFEPIME 2,000 MG in SODIUM CHLORIDE 0.9% 100 ML IV SCH (04:59)
[2016-11-13] MEDS: PANTOPRAZOLE 40 MG TABLET PO SCH (08:55)
[2016-11-13] MEDS: ENOXAPARIN 40 MG/0.4 ML SYRINGE SUBCUT SCH (08:55)
--- NOTE | 2016-11-13 10:22 | Gastrointestinal Progress Note ---
Assessment and Plan (1) Abnormal weight loss Status: Acute Assessment and plan: This patient has a fairly significant weight loss over the last 7 years which has been slowly progressive and is likely multifactorial. May be some depression not to mention dementia feeding into this weight loss however the son Emmanuel Ricks notes inability to tolerate the same volume of food the patient had previously and a CT scan shows thickening of the distal esophageal junction and the proximal stomach suspicious for either cancer, esophagitis/gastritis, or underdistention during the CT film process. In my opinion is reasonable to perform upper endoscopy briefly in order to distinguish between these etiologies and check for Helicobacter pylori. Significant gastritis is noted we can certainly treat this and perhaps restore some of her appetite/help her regain her weight. Risks and benefits of the procedure were discussed with the patient and her son which include but are not limited to: Bleeding, infection, perforation, cardiac and pulmonary compromise. The patient's son would like everything done that needs to be done while she is here in the hospital, understandably. 11/12/16--findings upper endoscopy include the followin cm hiatal hernia, mild nonerosive linear gastritis, biopsies taken for celiac sprue given the patient's abnormal weight loss. No severe esophagitis or gastritis to correspond with findings of CT scan. We will see how she does with a regular diet that is low lactose and mechanically soft. 11/13/16--The patient's biopsies are pending at this time. She is eating adequately. She can certainly go home today from my standpoint. I have written her prescription for some Protonix to use twice a day for 1 month and then once a day prior to supper for best effect. Because she might have an element of depression and poor appetite I have written her for a half dose of Remeron 15 mg to be taken prior to bedtime at night. She can follow-up in my office in the next 2 months to see how her weight is doing. She may benefit from a colonoscopy down the road if she is not any better with the above interventions. Current Visit: Yes (2) Abnormal abdominal CT scan Status: Acute Assessment and plan: As mentioned above previous CT scanning demonstrates some thickening in the distal esophagus/proximal stomach suspicious for gastritis versus malignancy versus underdistention. 11/12/16--This proved to be underdistention. No cancer or severe gastritis appreciated. 11/13/16--as mentioned above. Mild gastritis and some thickening around the cardia, see pictures. Current Visit: Yes (3) Early satiety Status: Acute Assessment and plan: This patient may simply have neglect however given the early satiety symptoms there may be gastroparesis present as well. She does have some diabetes and so this is certainly conceivable. We should be able to tell this fairly quickly with upper endoscopy tomorrow. 11/12/16--There was a scant amount of retained fluid in the stomach but no solid food. If gastroparesis is present it is quite limited. 11/13/16--Patient is taking food adequately. There was no gross evidence of severe gastroparesis on EGD yesterday, will continue to treat mild gastritis seen with pantoprazole twice daily. Patient stable for discharge from my standpoint. We will sign off at this time. She can follow-up with me in the clinic in 2 months. Current Visit: Yes Gastroenterology - PN: Subj Interval history: Patient is eating better and has no current complaints, she would like to go home today if possible. Upper endoscopy results are as noted above. Exam (Progress Note) - Constitutional Vitals: Period Temp Pulse Resp BP Sys/[place] Pulse Ox Last 24 Hr 97.5 F-99.2 F 71-99 16-20 144-186/66-98 96-97 General appearance: no acute distress - Head Head exam: Present: normocephalic - Eye Eye exam: Present: EOMI - Respiratory Respiratory exam: Present: clear to auscultation bilaterally - Cardiovascular Cardiovascular exam: Present: regular rate and rhythm - GI/Abdominal GI/Abdominal exam: Present: normal bowel sounds, soft. Absent: distended, tenderness, rebound - Extremities Exam Extremities exam: Absent: edema - Neurological Exam Neurological exam: Present: alert, altered (Mild to moderately demented) - Psychiatric Psychiatric exam: Present: normal affect, normal mood - Skin Skin exam: Present: warm Results - Labs CBC & BMP: 11/11/16 07:07 11/11/16 07:07
--- NOTE | 2016-11-13 11:41 | Pulmonology Progress Note ---
Pulmonary - PN: Subj Interval history: #1: Abnormal chest x-ray with asymmetrical finding in the right perihilar area most likely secondary to infectious process, but consider other causes #2: Fall with laceration to the forehead #3: Weight loss #4: Questionable wall thickening across the esophageal gastric junction seen on CT abdomen 11/10/2016 #5: Asthma #6: Hypertension #7: Degenerative joint disease #8: Hyperlipidemia #9: Azotemia #10: See past history 11/12/2016. CT of the chest done 11/11/2016 showed consolidation and volume loss involving the right middle lobe. Upon review of this, this is going to be secondary to right middle lobe infiltrate. The question will be if there is anything in the bronchus. We will watch this for now but the patient may end up requiring fiberoptic bronchoscopy since this area does not drain well. 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 She has been seen in GI consultation by Dr. Garsia. 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 There is no severe esophagitis or gastritis to correspond with the findings on the CT the abdomen done 2016. She has been seen in surgical consultation by Dr. Valle for the aneurysmal dilatation of the ascending aorta. He has consulted Dr. Bowers for evaluation, but does not feel that this will need to be surgically evaluated. Medications have been reviewed. We made no changes. Labs been reviewed. No new labs were drawn today 11/13/2016. This patient stable today. Based on her chest x-ray and CT of her chest looks like she has a right middle lung pneumonia. There is a good possibility this will not drain. If it does not drain she will need fiberoptic bronchoscopy. Right middle lung is hard to drain and resolving pneumonias can result in the right middle lung syndrome persists for quite some time. Also have to consider the possibility of endobronchial obstruction. This was discussed with the patient today so she can be thinking about ending case we come to that point. Microbiology has shown no positive cultures. White blood cell count is elevated to 16,400 with 96. Electrolytes normal H&H is stable and creatinine is 1.3 with a BUN of 16. Follow-up chest x-ray is ordered for Tuesday. Exam (Progress Note) - Constitutional Vitals: Period Temp Pulse Resp BP Sys/[place] Pulse Ox Last 24 Hr 98.0 F-99.1 F 66-81 16-18 110-176/62-95 90-98 Exam: Alert. Face. Symmetrical with no edema. Neck. Symmetrical with no meningismus. Chest is clear Heart no gallop Abdomen is nontender and nondistended; bowel sounds are positive 4 Extremities with nothing to suggest acute deep venous femoral phlebitis Psychiatric oriented at least to person and place; slight stigmata of dementia Neurologic long-term motor function is intact The remainder the physical exam is negative Plan: 11/12/2016 1. Continue present treatment. 2. Will repeat chest x-ray on Tuesday. 3. Repeat labs on Tuesday. 4. See orders. 11/13/2016. 1. See today's note above 2. Lab and chest x-ray tomorrow Exam (Progress Note) - Constitutional Vitals: Period Temp Pulse Resp BP Sys/[place] Pulse Ox Last 24 Hr 97.5 F-99.2 F 71-99 16-20 144-186/66-98 96-97 Results - Labs CBC & BMP: 11/11/16 07:07 11/11/16 07:07
--- NOTE | 2016-11-13 13:11 | Hospitalist Progress Note ---
Assessment and Plan (1) Pneumonia Status: Acute Assessment and plan: cont cefepime and Duo nebs. Dr. Nina is concerned that the pneumonia may not improve due to its location. He will plan for bronchoscopy on Tuesday. Repeat CBC in a.m. Current Visit: Yes (2) Aneurysm of ascending aorta Status: Acute Assessment and plan: not a good surgical candidate Current Visit: Yes (3) First degree AV block Status: Acute Assessment and plan: First-degree AV block Current Visit: Yes (4) Laceration of head Status: Acute Assessment and plan: stitches look good Current Visit: Yes (5) Right knee pain Status: Acute Assessment and plan: X-ray of the right knee. Continue PT and OT. Case management for rehab Current Visit: Yes (6) Weight loss Status: Acute Assessment and plan: s/p EGD showed hiatal hernia and mild nonerosive linear gastritis continue Protonix. Biopsies taken for celiac sprue. Current Visit: Yes Hospitalist: Subjective Interval history: Patient feels like her breathing is getting better but she said she is having a lot of pain in her right knee. It has extensive arthritis and it [id number]. She reports this is most likely the reason she fell. We will get an x-ray just to ensure there is no fracture. Exam - Constitutional Vitals: Period Temp Pulse Resp BP Sys/[place] Pulse Ox Last 24 Hr 97.5 F-99.2 F 71-99 16-20 144-186/66-98 96-97 Exam: Heart Rate-[RRR] Lungs-[rhonchi on right ] GI-[+bs soft, NT] Ext-[no edema] Neuro [Motor 5/5], [alert and oriented times 2] psych [normal mood and affect] General [no acute distress] right knee extensive arthritis. Results - Labs CBC & BMP: 11/11/16 07:07 11/11/16 07:07 Lab Results: I have reviewed the past 24 hour labs
--- NOTE | 2016-11-13 15:11 | XRay Report ---
XR knee 2V RT Indication: Knee pain Comparison: 03 June 2014 Findings: No evidence of fracture seen. The alignment of the joints appears normal. Moderate to severe lateral compartment and moderate remaining compartment degenerative change is present. No soft tissue abnormality is seen. Impression: Knee osteoarthrosis as described above. PROCEDURE INTERPRETED AT [facility] DEPARTMENT OF RADIOLOGY Final Report Signed by: Dr. Smith Mayorga
[2016-11-13] MEDS: CEFEPIME 2,000 MG in SODIUM CHLORIDE 0.9% 50 ML IV SCH (17:13)
[2016-11-14 03:42] LABS: Basophils % 0.5 % (0.0-0.8); Eosinophils # 1.2 10*3/uL (0.0-0.87); Eosinophils % 14.6 % (0.00-10.9); Hematocrit 38.9 VOL% (35.7-47.0); Hemoglobin 13.2 GM/DL (12.0-16.0); Immature Granulocytes % 0.5 %; Immature Granulocytes Absolute 0.04 #; Lymphocytes # 2.1 10*3/uL (1.4-4.0); Lymphocytes % 26.1 % (21.3-54.2); Mean Corpuscular HGB Conc 33.9 GM/DL (32-36); Mean Corpuscular Hemoglobin 30 PG (27-34); Mean Corpuscular Volume 89.2 FL (87-102); Mean Platelet Volume 12.3 FL (9.6-12.0); Monocytes # 0.6 10*3/uL (0.11-0.8); Monocytes % 7.3 % (1.7-12.7); Platelet Count 215 T/CUMM (130-400); Red Blood Count 4.36 MC/CUMM (3.8-5.5); Red Cell Distribution Width 15.2 % (9.3-17.3); White Blood Count 7.9 T/CUMM (4-12)
[2016-11-14 04:14] LABS: Calcium 8.2 MG/DL (8.5-10.1); Osmolality,Calculated 282.3 MOS/KG (273-304); Potassium 3.5 MMOL/L (3.5-5.1)
[2016-11-14 04:58] LABS: Band Neutrophils 1 % (0-10); Eosinophils 13 % (0-10); Lymphocytes 24 % (20-55); Segmented Neutrophils 54 % (50-85); Total Cells Counted 100
[2016-11-14 04:59] LABS: Anisocytosis 1+; Platelet Estimate Adequate
[2016-11-14] MEDS: CEFEPIME 2,000 MG in SODIUM CHLORIDE 0.9% 50 ML IV SCH ×2 (05:04→16:55)
[2016-11-14] MEDS: PANTOPRAZOLE 40 MG TABLET PO SCH (09:16)
[2016-11-14] MEDS: ENOXAPARIN 40 MG/0.4 ML SYRINGE SUBCUT SCH (09:16)
--- NOTE | 2016-11-14 09:26 | XRay Report ---
XR chest 2V Indication: Pneumonia Comparison: 10 November 2016 Findings: The heart and mediastinum are normal in size and configuration. The pulmonary vascularity is normal in caliber. Lung volumes are increased with prominent bronchial markings. Right hilar density is present similar to previous exam. No other lung infiltrates, effusions, pneumothorax or other abnormality is demonstrated. Impression: No significant change. PROCEDURE INTERPRETED AT [facility] DEPARTMENT OF RADIOLOGY Final Report Signed by: Dr. Smith Mayorga
--- NOTE | 2016-11-14 10:42 | Orthopedic Consult Note ---
History of Present Illness Chief complaint: Chief complaint: Right knee pain History of present illness: Ms. Ricks is a 86 year old female Home I was asked to see because of right knee pain. She is currently hospitalized because of a lung lesion which which while it is still under evaluation may be infectious. She is on antibiotics. She is improving. See pulmonology and hospitalist notes for details. She has long-standing knee pain. She fell at home and attributes that to her knee giving way on her. However since she has been hospitalized her knee is a lot better and no longer bothered her. She expresses a desire to go home. Past history see the aforementioned nose. There is also indications that she has dementia from the records Orthopedic examination. Patient is alert but may not be oriented she is sitting in a chair. She can stand with some mild assistance. She has crepitus in both knees and in her right knee she has pain on motion. Her right knee range of motion is 2-95 left knee range of motion is close to full X-rays: Are reviewed and there is an AP lateral right knee done 11/13/16 which show severe osteoarthritis with [id number] contact Diagnosis: Osteoarthritis right knee Recommendations 1 I had a discussion with her and her only interest at this point seems to be in going home. 2. As far as her knee is concerned she is a candidate for total knee replacement are for conservative temporizing measures a cortisone shot. However at the moment she still has a presumed infectious process in her chest she is on antibiotics and she is also on Lovenox. I think this contraindicates a corticosteroid injection at this point in time. However that is something that could be considered later and she can see Dr. Cisneros in his office after she is discharged if she wants to proceed with either of those options. Home Medications Medication Instructions Recorded Confirmed Type Atenolol 50 mg PO BID 11/11/16 11/11/16 History Montelukast Tab [Singulair Tab] 10 mg PO DAILY 11/11/16 11/11/16 History NIFEdipine [Nifedipine ER] 60 mg PO DAILY 11/11/16 11/11/16 History Nitrofurantoin Macrocrystal 100 mg PO Q12H 11/11/16 11/11/16 History [Nitrofurantoin] Potassium Chloride 16 meq PO DAILY 11/11/16 11/11/16 History cephALEXin [Cephalexin] 500 mg PO QID 11/11/16 11/11/16 History Allergies Allergy/AdvReac Type Severity Reaction Status Date / Time codeine Allergy ITCHING Verified 11/11/16 07:39 Medical,Surgical,& Family Hx - Medical History Cardio: History of: Hypertension Neurology: No history of: Seizures Endocrine: History of: Dyslipidemia - Surgical History Abdominal Surgeries: Surgical HX of: Abdominal Surgery, Appendectomy - Social History Smoking Status: Never smoker Frequency of Alcohol Use: None Type of Drug Use: None Exam - Constitutional Vitals: Period Temp Pulse Resp BP Sys/[place] Pulse Ox Last 24 Hr 96.8 F-99.0 F 69-81 16-20 127-168/70-97 93-97 Results - Labs CBC & BMP: 11/14/16 02:18 11/14/16 02:18
--- NOTE | 2016-11-14 10:53 | Hospitalist Progress Note ---
Assessment and Plan (1) Pneumonia Status: Acute Assessment and plan: cont cefepime and Duo nebs. Dr. Nina is concerned that the pneumonia may not improve due to its location. He will plan for bronchoscopy on Tuesday. Repeat CBC in a.m. Current Visit: Yes (2) Aneurysm of ascending aorta Status: Acute Assessment and plan: not a good surgical candidate Current Visit: Yes (3) First degree AV block Status: Acute Assessment and plan: First-degree AV block Current Visit: Yes (4) Laceration of head Status: Acute Assessment and plan: stitches look good Current Visit: Yes (5) Right knee pain Status: Acute Assessment and plan: X-ray of the right knee. Continue PT and OT. Case management for rehab Current Visit: Yes (6) Weight loss Status: Acute Assessment and plan: s/p EGD showed hiatal hernia and mild nonerosive linear gastritis continue Protonix. Biopsies taken for celiac sprue. Current Visit: Yes Hospitalist: Subjective Interval history: Dr. Nina and I have discussed the case. I have called her son and he does not want her to go home today and I agree. Patient's pneumonia is improving but she is not stable enough to go home. Somebody is coming in feeding her dog every day. Exam - Constitutional Vitals: Period Temp Pulse Resp BP Sys/[place] Pulse Ox Last 24 Hr 96.8 F-99.0 F 69-81 16-20 127-168/70-97 93-97 Exam: Heart Rate-[RRR] Lungs-[clear] GI-[+bs soft, NT] Ext-[no edema] Neuro [Motor 5/5], [alert and oriented times 2] psych [normal mood and affect] General [no acute distress] right knee extensive arthritis. Results - Labs CBC & BMP: 11/14/16 02:18 11/14/16 02:18 Lab Results: I have reviewed the past 24 hour labs Labs: Blood cultures 2 negative no growth
--- NOTE | 2016-11-14 12:43 | Pulmonology Progress Note ---
Pulmonary - PN: Subj Interval history: This is an 86-year-old white female whom I saw in pulmonary consultation on 11/11. My impressions were.. #1: Abnormal chest x-ray with asymmetrical finding in the right perihilar area most likely secondary to infectious process, but consider other causes #2: Fall with laceration to the forehead #3: Weight loss #4: Questionable wall thickening across the esophageal gastric junction seen on CT abdomen 11/10/2016 #5: Asthma #6: Hypertension #7: Degenerative joint disease #8: Hyperlipidemia #9: Azotemia #10: See past history 11/12/2016. CT of the chest done 11/11/2016 showed consolidation and volume loss involving the right middle lobe. Upon review of this, this is going to be secondary to right middle lobe infiltrate. The question will be if there is anything in the bronchus. We will watch this for now but the patient may end up requiring fiberoptic bronchoscopy since this area does not drain well. 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 She has been seen in GI consultation by Dr. Garsia. 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 There is no severe esophagitis or gastritis to correspond with the findings on the CT the abdomen done 2016. She has been seen in surgical consultation by Dr. Valle for the aneurysmal dilatation of the ascending aorta. He has consulted Dr. Bowers for evaluation, but does not feel that this will need to be surgically evaluated. Medications have been reviewed. We made no changes. Labs been reviewed. No new labs were drawn today 11/13/2016. This patient stable today. Based on her chest x-ray and CT of her chest looks like she has a right middle lung pneumonia. There is a good possibility this will not drain. If it does not drain she will need fiberoptic bronchoscopy. Right middle lung is hard to drain and resolving pneumonias can result in the right middle lung syndrome persists for quite some time. Also have to consider the possibility of endobronchial obstruction. This was discussed with the patient today so she can be thinking about ending case we come to that point. Microbiology has shown no positive cultures. White blood cell count is elevated to 16,400 with 96. Electrolytes normal H&H is stable and creatinine is 1.3 with a BUN of 16. Follow-up chest x-ray is ordered for Tuesday. 11/14/2016. Today's chest x-ray shows a remarkable improvement. I would say the right middle lung infiltrate is 70-80% resolved. I see no other abnormalities. There are no positive cultures. The patient has been treated with cefepime. White count has dropped to 7900 with 51 626 lymphs and 15% eosinophilia electrolytes are normal. Creatinine to 1.4 with a BUN of 20. Earlier today the patient told me her actual wall were dogs at home with no one to feed him or take care of him. He told Dr. Mariel Vivar same story. Dr. Vivar called her son and he confirmed that the dog is being taken care of. In light of the improvement in this patient's x-ray I think she is she will probably be ready to go home in another day. If absolutely necessary we can send her home today. I would suggest Ceftin 250 mg twice a day for 10 days. We do not need a particular high dose because the right middle lung is slow drainer I think linked this will be held Exam (Progress Note) - Constitutional Vitals: Period Temp Pulse Resp BP Sys/[place] Pulse Ox Last 24 Hr 98.0 F-99.1 F 66-81 16-18 110-176/62-95 90-98 Exam: Alert. Face. Symmetrical with no edema. Neck. Symmetrical with no meningismus. Chest is clear Heart no gallop Abdomen is nontender and nondistended; bowel sounds are positive 4 Extremities with nothing to suggest acute deep venous femoral phlebitis Psychiatric oriented at least to person and place; slight stigmata of dementia Neurologic long-term motor function is intact The remainder the physical exam is negative Plan: 11/12/2016 1. Continue present treatment. 2. Will repeat chest x-ray on Tuesday. 3. Repeat labs on Tuesday. 4. See orders. 11/13/2016. 1. See today's note above 2. Lab and chest x-ray tomorrow 11/14/2016. 1. See today's note above 2. Looks like the right middle lung pneumonia is going to resolve and the patient is close to be and ready for discharge. Exam (Progress Note) - Constitutional Vitals: Period Temp Pulse Resp BP Sys/[place] Pulse Ox Last 24 Hr 96.8 F-99.0 F 69-81 16-20 127-181/70-97 91-96 Results - Labs CBC & BMP: 11/14/16 02:18 11/14/16 02:18
[2016-11-15] MEDS: CEFEPIME 2,000 MG in SODIUM CHLORIDE 0.9% 50 ML IV SCH ×2 (05:15→19:37)
--- NOTE | 2016-11-15 08:22 | XRay Report ---
XR chest 2V Indication: Shortness of breath Comparison: One November 2016 Findings: The heart and mediastinum are normal in size and configuration. The pulmonary vascularity is normal in caliber. Lung volumes are increased with prominent bronchial markings. Right hilar density is present similar to previous exam. No other lung infiltrates, effusions, pneumothorax or other abnormality is demonstrated. Impression: Chronic lung changes. No acute process or significant change. PROCEDURE INTERPRETED AT [facility] DEPARTMENT OF RADIOLOGY Final Report Signed by: Dr. Smith Mayorga
[2016-11-15] MEDS: ENOXAPARIN 40 MG/0.4 ML SYRINGE SUBCUT SCH (09:40)
[2016-11-15] MEDS: PANTOPRAZOLE 40 MG TABLET PO SCH (09:40)
--- NOTE | 2016-11-15 12:02 | Pulmonology Progress Note ---
Pulmonary - PN: Subj Interval history: Shawn Mcmillan, AGPCNP-, acting as scribe for Dr. Chele Nina Ms. Ricks is an 86-year-old white female who we saw in initial pulmonary consultation on 11/11/2016. At that time, our impressions were: #1: Abnormal chest x-ray with asymmetrical finding in the right perihilar area most likely secondary to infectious process, but consider other causes #2: Fall with laceration to the forehead #3: Weight loss #4: Questionable wall thickening across the esophageal gastric junction seen on CT abdomen 11/10/2016 #5: Asthma #6: Hypertension #7: Degenerative joint disease #8: Hyperlipidemia #9: Azotemia #10: See past history 11/12/2016. CT of the chest done 11/11/2016 showed consolidation and volume loss involving the right middle lobe. Upon review of this, this is going to be secondary to right middle lobe infiltrate. The question will be if there is anything in the bronchus. We will watch this for now but the patient may end up requiring fiberoptic bronchoscopy since this area does not drain well. 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 She has been seen in GI consultation by Dr. Garsia. 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 There is no severe esophagitis or gastritis to correspond with the findings on the CT the abdomen done 2016. She has been seen in surgical consultation by Dr. Valle for the aneurysmal dilatation of the ascending aorta. He has consulted Dr. Bowers for evaluation, but does not feel that this will need to be surgically evaluated. Medications have been reviewed. We made no changes. Labs been reviewed. No new labs were drawn today 11/13/2016. This patient stable today. Based on her chest x-ray and CT of her chest looks like she has a right middle lung pneumonia. There is a good possibility this will not drain. If it does not drain she will need fiberoptic bronchoscopy. Right middle lung is hard to drain and resolving pneumonias can result in the right middle lung syndrome persists for quite some time. Also have to consider the possibility of endobronchial obstruction. This was discussed with the patient today so she can be thinking about ending case we come to that point. Microbiology has shown no positive cultures. White blood cell count is elevated to 16,400 with 96. Electrolytes normal H&H is stable and creatinine is 1.3 with a BUN of 16. Follow-up chest x-ray is ordered for Tuesday. 11/14/2016. Today's chest x-ray shows a remarkable improvement. I would say the right middle lung infiltrate is 70-80% resolved. I see no other abnormalities. There are no positive cultures. The patient has been treated with cefepime. White count has dropped to 7900 with 51 626 lymphs and 15% eosinophilia electrolytes are normal. Creatinine to 1.4 with a BUN of 20. Earlier today the patient told me her actual wall were dogs at home with no one to feed him or take care of him. He told Dr. Mariel Vivar same story. Dr. Vivar called her son and he confirmed that the dog is being taken care of. In light of the improvement in this patient's x-ray I think she is she will probably be ready to go home in another day. If absolutely necessary we can send her home today. I would suggest Ceftin 250 mg twice a day for 10 days. We do not need a particular high dose because the right middle lung is slow drainer I think linked this will be held 11/15/2016. Patient is doing well from a pulmonary standpoint. Her previously noted right middle lung infiltrate is resolving. There are no positive cultures. See the note 11/14/2016 regarding antibiotic recommendations at discharge. Again, the patient is anxious to be discharged home. We told her that from our standpoint she should be likely stable, but we will leave the final decision up to her attending. Medications have been reviewed. We made no changes today. Labs been reviewed. No new labs drawn today. Exam (Progress Note) - Constitutional Vitals: Period Temp Pulse Resp BP Sys/[place] Pulse Ox Last 24 Hr 97.5 F-99.2 F 80-100 16-18 157-186/89-102 96-98 Exam: Chest is clear Heart no gallop Abdomen is nontender and nondistended; bowel sounds are positive 4 Extremities with nothing to suggest acute deep venous thrombophlebitis Psychiatric oriented at least to person and place; slight stigmata of dementia Neurologic long-term motor function is intact Plan: Continue present treatment. If she is discharged, we would recommend Ceftin 250 mg twice daily for 10 days. Results - Labs CBC & BMP: 11/14/16 02:18 11/14/16 02:18 Specialty Discharge - Follow Up or Referrals Follow up with: Angel Cisneros Jr., MD [Physician] - (call if needed. [phone])
--- NOTE | 2016-11-15 12:31 | Discharge Summary ---
Hospital Course - Hospital Course Hospital Course: The patient was admitted to the hospital with shortness of breath cough and sputum production. The patient was diagnosed with right middle lobe pneumonia by chest x-ray. The patient had pulmonary consultation. The patient is improving on IV antibiotics and now making transition to oral medicine. She is ready for discharge home on Ceftin and follow-up with her usual primary care physician. The chest is generally clear, heart has regular rate and rhythm, and abdomen soft. Patient medications were reconciled upon admission, and again at the time of discharge. The patient was screened for tobacco use and found to be a occasional smoker. The patient was given 4 minutes of tobacco avoidance education. The patient's medical decsion maker is themself, and when asked, they asked to be Full code. Discharge Time was 33 minutes, including final examination, evaluation and planning, education, reconciliation of medications, writing prescriptions, coordinating care with case finishing machine adjuster, and preparing discharge documentation. Diagnosis - Discharge Diagnosis (1) Pneumonia Status: Resolved (2) First degree AV block Status: Chronic Specialty Discharge - Follow Up or Referrals Follow up with: Angel Cisneros Jr., MD [Physician] - (call if needed. [phone]) Discharge Plan - Discharge Data Disposition: Home Health Service Condition at Discharge: Stable Discharge Diet: heart healthy Activity: resume usual activities as tolerated - Discharge Medications New Cefuroxime Tab [Ceftin] 250 mg PO BID #20 tablet Continue Atenolol 50 mg PO BID Nitrofurantoin Macrocrystal [Nitrofurantoin] 100 mg PO Q12H Montelukast Tab [Singulair Tab] 10 mg PO DAILY NIFEdipine [Nifedipine ER] 60 mg PO DAILY Potassium Chloride 16 meq PO DAILY Discontinued cephALEXin [Cephalexin] 500 mg PO QID - Follow Up or Referral Follow Up: Angel Cisneros Jr., MD [Physician] - (call if needed. [phone]) - Forms/Instructions Exam - Constitutional Vitals: Period Temp Pulse Resp BP Sys/[place] Pulse Ox Last 24 Hr 97.5 F-99.2 F 80-100 16-18 157-186/89-102 96-98 Discharge Results Procedures and tests throughout hospitalization: Pending Orders 11/10/16 00:15 Blood Culture Stat Labs on day of discharge: Preliminary micro results at discharge 11/10/16 00:15 Blood Culture - Preliminary Blood No growth at 3 days 11/10/16 00:10 Blood Culture - Preliminary Blood No growth at 3 days DS: Provider Date of admission: 11/11/16 02:10 Primary care physician: Ed Valle MD Attending physician on admission: Anderson Calabrese MD Consults: 11/11/16 02:13 Consult to Physician [CONS] Routine Comment: changes on cxr Consulting Provider: Chele Nina Consulting Provider Notified: Yes When should Consulting Provider be notified: Now When should Consulting Provider be notified: In am Person Notified: dustin called Date Notified: 11/11/16 Time Notified: 08:10 11/11/16 04:48 Consult to Dietitian [CONS] Routine Reason for Dietitian: Supplements and/or Snacks 11/11/16 14:51 Consult to Physician [CONS] Routine Comment: ascending aortic aneurysm Consulting Provider: Ed Valle Consulting Provider Notified: Yes When should Consulting Provider be notified: Now Person Notified: katiuska called Date Notified: 11/11/16 Time Notified: 15:21 11/11/16 19:17 Consult to Anesthesiology [CONS] Routine Consulting Provider: Reason for Anesthesiology: Pre-op Clearance 11/12/16 10:31 Consult to Physician [CONS] Routine Comment: ascending aortic aneurysm Consulting Provider: Faby Bowers Consulting Provider Notified: Yes When should Consulting Provider be notified: Now Person Notified: farnaz linda answering service Date Notified: 11/12/16 Time Notified: 10:53 Consult Notification Comment: in surgery now but will call floor 11/12/16 16:37 Consult to Occupational Therapy [CONS] Routine Reason for Occupational Therapy: Evaluate and Treat Consult Comment: Evaluate & Treat for Swing Bed Placement Consult to Physical Therapy [CONS] Routine Reason for Physical Therapy: Evaluate and Treat Consult Comment: Evaluate & Treat for Swing Bed Placement 11/13/16 13:13 Consult to Case Mgmt/Social Srvs [CONS] Routine Reason for Case Mgmt/Social Srvs: Rehab 11/14/16 08:43 Consult to Physician [CONS] Routine Comment: right knee pain, unable to hold weight Consulting Provider: Edward Goodwin Person Notified: Dr. Goodwin Date Notified: 11/14/16 Time Notified: 10:17 Consult Notification Comment: Discharging clinician: Ty Escalante MD
--- NOTE | 2016-11-15 15:16 | Pathology Report from [facility] ---
[facility] ACCESSION # : [id number] PATIENT NAME : Maeve Ricks ORDERING DR : Ryan Garsia MD CLINICAL HX: Weight loss POST-OP DX: #1 Celiac Sprue #2 Gastritis SPECIMEN INFO: #1 Duodenal biopsy #2 STACEY GROSS DESCRIPTION: #1 Received in formalin labeled with the patients name MAEVE RICKS and #1 consists of a 0.6 x 0.4 cm aggregate of browne tissue. Submitted in cassette #1.#2 Received in formalin labeled with the patients name MAEVE RICKS and #2 consists of two browne tissue fragments measuring 0.5 x 0.4 cm collectively. Submitted in cassette #2. DIAGNOSIS FOR MAEVE RICKS: #1 DUODENAL, BIOPSY: Benign duodenal mucosa. No villous blunting or increased intraepithelial lymphocytes seen. #2 GASTRIC, BIOPSY: Moderate chronic gastritis. H. pylori not seen on H&E or special stain with appropriate control. COLLECTED DATE: 11/12/2016 [facility] REPORT DATE: 11/15/2016 ELECTRONICALLY SIGNED BY: Vonda Zuniga M.D. 11/15/2016 - 13:33:35 VIANEY
[2016-11-16] MEDS: CEFEPIME 2,000 MG in SODIUM CHLORIDE 0.9% 50 ML IV SCH (05:40)
--- NOTE | 2016-11-16 09:24 | Hospitalist Progress Note ---
Assessment and Plan (1) Pneumonia Status: Resolved Assessment and plan: The patient has improved her pneumonia. She is now ready for transfer to swing bed for further strengthening prior to returning to independent living in her home with home health. She will complete a 10 day course of Ceftin. Current Visit: Yes (2) First degree AV block Status: Chronic Current Visit: Yes Hospitalist: Subjective Interval history: The patient's discharge was delayed by her decision to accept transfer to swing bed at [facility]. The patient had previously only accepted discharge home with home health. This plan to swing bed is a better solution and safer for the patient. The patient has no new symptoms today. Shortness of breath continues to improve and the patient has made transition from IV to oral antibiotic with Ceftin. The patient has no angina or palpitation today. The patient is afebrile. Appetite is slowly improving. Exam - Constitutional Vitals: Period Temp Pulse Resp BP Sys/[place] Pulse Ox Last 24 Hr 96.8 F-98.1 F 78-100 16-18 161-207/82-103 93-97 General appearance: no acute distress - Respiratory Respiratory exam: Present: clear to auscultation bilaterally - Cardiovascular Cardiovascular exam: Present: regular rate and rhythm - GI/Abdominal GI/Abdominal exam: Present: normal bowel sounds Results - Labs CBC & BMP: 11/14/16 02:18 11/14/16 02:18 Specialty Discharge - Follow Up or Referrals Follow up with: Faby Bowers [Physician] - (call as needed) Angel Cisneros Jr., MD [Physician] - (call if needed. [phone]) Ryan Garsia MD [Physician] - (May follow up in office in 2 months for weight check up) Chele Nina MD [Physician] - (call as needed)
[2016-11-16 11:07] VITALS: BP 158/93
[2016-11-16] MEDS: ENOXAPARIN 40 MG/0.4 ML SYRINGE SUBCUT SCH (11:23)
[2016-11-16] MEDS: PANTOPRAZOLE 40 MG TABLET PO SCH (11:23)
--- NOTE | 2016-11-16 12:34 | Pulmonology Progress Note ---
Pulmonary - PN: Subj Interval history: MACRINA Dong-, acting as scribe for Dr. Chele Nina Your plans for discharge are noted. We will sign off. Please reconsult as needed. Exam (Progress Note) - Constitutional Vitals: Period Temp Pulse Resp BP Sys/[place] Pulse Ox Last 24 Hr 96.8 F-98.2 F 78-95 16-18 158-207/82-103 93-97 Results - Labs CBC & BMP: 11/14/16 02:18 11/14/16 02:18 Specialty Discharge - Follow Up or Referrals Follow up with: Faby Bowers [Physician] - (call as needed) Angel Cisneros Jr., MD [Physician] - (call if needed. [phone]) Ryan Garsia MD [Physician] - (May follow up in office in 2 months for weight check up) Chele Nina MD [Physician] - (call as needed)
== END 2016-11-16 13:25 | disposition swing bed (61) | DRG 195 ==
LOC: N.ED 22:03 → N.EDINP 11-11 02:10 → SUATTDRO 11-11 02:10 → N.3E 11-11 02:38
PROVIDERS: ADMIT Internal Medicine; ATTEND Internal Medicine

== ENCOUNTER 2019-04-23 15:59 | Inpatient (IN) ==
[2019-04-23] MEDS ORDERED: SODIUM CHLORIDE 0.9% 1,000 ML IV STA (16:21)
[2019-04-23] MEDS ORDERED: ASPIRIN 325 MG TABLET PO STA (16:21)
[2019-04-23 17:00] LABS: Basophils # 0.1 10*3/uL (0.0-0.2); Basophils % 0.4 % (0.0-0.8); Eosinophils # 0.1 10*3/uL (0.0-0.87); Eosinophils % 0.9 % (0.00-10.9); Hematocrit 39.5 VOL% (35.7-47.0); Hemoglobin 12.5 GM/DL (12.0-16.0); Immature Granulocytes % 0.5 %; Immature Granulocytes Absolute 0.07 #; Lymphocytes # 1.8 10*3/uL (1.4-4.0); Lymphocytes % 13.3 % (21.3-54.2); Mean Corpuscular HGB Conc 31.6 GM/DL (32-36); Mean Corpuscular Volume 94.7 FL (87-102); Mean Platelet Volume 11.1 FL (9.6-12.0); Monocytes % 6.1 % (1.7-12.7); Neutrophils % 78.8 % (38.7-73.9); Platelet Count 261 T/CUMM (130-400); Red Blood Count 4.17 MC/CUMM (3.8-5.5); Red Cell Distribution Width 14.1 % (9.3-17.3); White Blood Count 13.9 T/CUMM (4-12)
[2019-04-23 17:11] LABS: Apearance,Urine CLOUDY (Clear); Bilirubin,Urine Negative (Negative); Blood, Urine Negative (Negative); Glucose,Urine (UA) Negative (Negative); Hyaline Casts,Urine 5 /LPF (0-3); Ketones,Urine Negative (Negative); Mucus,Urine Occasional /LPF (Occasional); Nitrite,Urine Negative (Negative); Protein,Urine 30 MG/DL; Squamous Epithelial Cell,Urine Occasional /HPF (0-10); Urine Color Amber (Yellow); Urine Specific Gravity 1.015 (1.001-1.035)
[2019-04-23 17:18] LABS: Alanine Aminotransferase 18 U/L (13-56); Albumin 2.7 G/DL (3.4-5.0); Alkaline Phosphatase 79 U/L (45-117); Aspartate Amino Transferase 26 U/L (0-37); Blood Urea Nitrogen 33 MG/DL (7-18); Calcium 9.2 MG/DL (8.5-10.1); Estimated Glom Filtration Rate 13 ML/MIN; Glucose 208 MG/DL (74-106); Osmolality,Calculated 295.1 MOS/KG (273-304)
[2019-04-23] MEDS ORDERED: ENOXAPARIN 30 MG/0.3 ML SYRINGE SUBCUT STA (17:22)
[2019-04-23 17:30] LABS: INR 1.1; PT Patient Result 11.4 SECS (9.6-12.2)
[2019-04-23 17:32] LABS: ABG Base Excess -2.4 MMOL/L (-2.5-2.5); ABG HCO3 22.3 MMOL/L (20-26); ABG Oxygen Saturation 90.1 % (95-100); ABG PCO2 39.6 MM HG (35-48); ABG PH 7.366 (7.35-7.45); ABG TCO2 20.3 MMOL/L (23-27); Allen Test Positive
[2019-04-23] MEDS ORDERED: PIPERACILLIN/TAZOBACTAM 3,375 MG in SODIUM CHLORIDE 0.9% 100 ML IV STA (17:43)
[2019-04-23] MEDS ORDERED: ONDANSETRON 4 MG/2 ML VIAL IV PRN (18:07)
[2019-04-23] MEDS ORDERED: FUROSEMIDE 40 MG/4 ML VIAL IV STA (18:07)
[2019-04-23] MEDS ORDERED: ALBUTEROL 2.5 MG/3 ML NEB RESP TX PRN (18:07)
[2019-04-23] MEDS: ROSUVASTATIN 20 MG TABLET PO SCH (22:04)
[2019-04-23] MEDS: MEMANTINE 10 MG TABLET PO SCH (22:04)
[2019-04-23] MEDS: DONEPEZIL 10 MG TABLET PO SCH (22:04)
[2019-04-23] MEDS: PANTOPRAZOLE 40 MG VIAL IV SCH (22:05)
[2019-04-23] MEDS: BUDESONIDE 0.5 MG/2 ML NEB RESP TX SCH (23:00)
[2019-04-24] MEDS: NOREPINEPHRINE 8 MG in SODIUM CHLORIDE 0.9% 242 ML IV SCH ×3 (01:08→23:32)
[2019-04-24 04:59] LABS: Basophils % 0.2 % (0.0-0.8); Eosinophils % 0.1 % (0.00-10.9); Hematocrit 35.3 VOL% (35.7-47.0); Hemoglobin 11.2 GM/DL (12.0-16.0); Immature Granulocytes % 0.8 %; Immature Granulocytes Absolute 0.14 #; Lymphocytes # 1.9 10*3/uL (1.4-4.0); Mean Corpuscular HGB Conc 31.7 GM/DL (32-36); Mean Corpuscular Volume 96.4 FL (87-102); Mean Platelet Volume 11.8 FL (9.6-12.0); Monocytes % 7.1 % (1.7-12.7); Neutrophils % 81.8 % (38.7-73.9); Platelet Count 246 T/CUMM (130-400); Red Blood Count 3.66 MC/CUMM (3.8-5.5); Red Cell Distribution Width 14.2 % (9.3-17.3); White Blood Count 18.6 T/CUMM (4-12)
[2019-04-24 05:52] LABS: Albumin 2.4 G/DL (3.4-5.0); Bilirubin,Total 1.3 MG/DL (0.2-1.0); Osmolality,Calculated 298.7 MOS/KG (273-304); Risk Ratio 2.78; Thyroid Stimulating Hormone 0.812 uIU/ml (0.358-3.74); Total Protein 7.3 G/DL (6.4-8.3)
[2019-04-24] MEDS: PIPERACILLIN/TAZOBACTAM 3,375 MG in SODIUM CHLORIDE 0.9% 100 ML IV SCH ×2 (07:07→18:45)
[2019-04-24] MEDS: BUDESONIDE 0.5 MG/2 ML NEB RESP TX SCH ×2 (07:35→19:35)
[2019-04-24] MEDS ORDERED: FUROSEMIDE 40 MG/4 ML VIAL IV SCH (09:00)
[2019-04-24] MEDS ORDERED: BISACODYL 10 MG SUPP RECTAL ONE (10:00)
[2019-04-24] MEDS: MONTELUKAST 10 MG TABLET PO SCH (10:42)
[2019-04-24] MEDS: LACTULOSE 20 GM/30 ML UDCUP PO SCH (10:42)
[2019-04-24] MEDS: MEMANTINE 10 MG TABLET PO SCH ×2 (10:43→23:54)
[2019-04-24] MEDS: GABAPENTIN 100 MG CAPSULE PO SCH (10:43)
[2019-04-24] MEDS ORDERED: HALOPERIDOL 5 MG/ML AMP IV ONE (11:17)
[2019-04-24] MEDS ORDERED: SODIUM CHLORIDE 0.9% 250 ML IV ONE ×2 (13:51→15:15)
[2019-04-24] MEDS ORDERED: SODIUM PHOSPHATE ENEMA 133 ML BOTTLE RECTAL ONE (15:30)
[2019-04-24] MEDS ORDERED: LACTULOSE 20 GM/30 ML UDCUP PO ONE (17:19)
[2019-04-24] MEDS: SODIUM CHLORIDE 0.9% 1,000 ML IV SCH (18:10)
[2019-04-24] MEDS: ENOXAPARIN 60 MG/0.6 ML SYRINGE SUBCUT SCH (18:10)
[2019-04-24] MEDS: methylPREDNISolone SOD SUC 40 MG/1 ML VIAL IV SCH (18:15)
[2019-04-24] MEDS: ALBUTEROL/IPRATROPIUM 3 ML NEB RESP TX SCH (19:35)
[2019-04-24] MEDS: DONEPEZIL 10 MG TABLET PO SCH (23:54)
[2019-04-24] MEDS: ROSUVASTATIN 20 MG TABLET PO SCH (23:54)
[2019-04-24] MEDS: PANTOPRAZOLE 40 MG VIAL IV SCH (23:54)
[2019-04-25 00:22] VITALS: BP 119/61
[2019-04-25] MEDS: ALBUTEROL/IPRATROPIUM 3 ML NEB RESP TX SCH ×3 (00:25→12:14)
[2019-04-25] MEDS: methylPREDNISolone SOD SUC 40 MG/1 ML VIAL IV SCH ×3 (02:05→16:55)
[2019-04-25 03:33] LABS: Basophils % 0.1 % (0.0-0.8); Hematocrit 32.5 VOL% (35.7-47.0); Hemoglobin 10.2 GM/DL (12.0-16.0); Immature Granulocytes % 0.9 %; Immature Granulocytes Absolute 0.13 #; Lymphocytes % 6.5 % (21.3-54.2); Mean Corpuscular HGB Conc 31.4 GM/DL (32-36); Mean Corpuscular Volume 96.4 FL (87-102); Mean Platelet Volume 11.6 FL (9.6-12.0); Monocytes % 3.5 % (1.7-12.7); NRBC # 0.02 10*3/uL; Platelet Count 187 T/CUMM (130-400); Red Blood Count 3.37 MC/CUMM (3.8-5.5); Red Cell Distribution Width 14.8 % (9.3-17.3); White Blood Count 15.3 T/CUMM (4-12)
[2019-04-25 03:58] LABS: Albumin 2.2 G/DL (3.4-5.0); Bilirubin,Total 0.7 MG/DL (0.2-1.0); Calcium 8.2 MG/DL (8.5-10.1); Osmolality,Calculated 304.7 MOS/KG (273-304); Total Protein 6.8 G/DL (6.4-8.3)
[2019-04-25] MEDS: PIPERACILLIN/TAZOBACTAM 3,375 MG in SODIUM CHLORIDE 0.9% 100 ML IV SCH ×2 (05:42→17:00)
[2019-04-25] MEDS: SODIUM CHLORIDE 0.9% 1,000 ML IV SCH (07:20)
[2019-04-25] MEDS ORDERED: MORPHINE 4 MG/1 ML VIAL IV PRN ×2 (08:16→18:41)
[2019-04-25] MEDS: BUDESONIDE 0.5 MG/2 ML NEB RESP TX SCH (08:18)
[2019-04-25] MEDS ORDERED: ASPIRIN EC 81 MG TABLET PO SCH (09:00)
[2019-04-25] MEDS ORDERED: SODIUM PHOSPHATE ENEMA 133 ML BOTTLE RECTAL ONE (10:00)
[2019-04-25] MEDS: MEMANTINE 10 MG TABLET PO SCH (10:26)
[2019-04-25] MEDS: GABAPENTIN 100 MG CAPSULE PO SCH (10:26)
[2019-04-25] MEDS: LACTULOSE 20 GM/30 ML UDCUP PO SCH ×3 (10:26→16:54)
[2019-04-25] MEDS: MONTELUKAST 10 MG TABLET PO SCH (10:26)
[2019-04-25] MEDS: ENOXAPARIN 60 MG/0.6 ML SYRINGE SUBCUT SCH (16:55)
[2019-04-25] MEDS ORDERED: LORazepam 2 MG/1 ML VIAL IV PRN (18:42)
== END 2019-04-25 20:19 | disposition expired ==
LOC: EDUNIT# → EDBD → N.ED 15:59 → N.EDINP 17:50 → N.ICU 18:36
PROVIDERS: ADMIT Internal Medicine; ATTEND Internal Medicine